=== PATIENT | female | born 1945 | race Hispanic/Latino ===

== ENCOUNTER → 2017-12-05 | Outpatient (CLI) | payer MEDICARE | LOC: RAH 12:55 | PROVIDERS: ATTEND Family Medicine | DX: Z12.31 Encounter for screening mammogram for malignant neoplasm of breast (principal) | CPT/HCPCS: 77067 ==

== ENCOUNTER → 2018-10-06 | Outpatient (CLI) | payer OTHER | END | disposition home or self-care (01) | LOC: OIH 12:35 | PROVIDERS: ATTEND Internal Medicine Cardiovascular Disease | DX: Z13.6 Encounter for screening for cardiovascular disorders (principal) | CPT/HCPCS: 75571 ==

== ENCOUNTER → 2018-11-16 | Outpatient (CLI) | payer MEDICARE ==
[~2018-11-16] MED LIST: REGADENOSON 0.4 MG/5 ML PF SYG IVP SCH
== END | disposition home or self-care (01) ==
LOC: SHCH 07:58
PROVIDERS: ATTEND Internal Medicine Cardiovascular Disease
DX: I10 Essential (primary) hypertension (principal)
CPT/HCPCS: 78452; 93017; 96374; A9500 ×2; J2785

== ENCOUNTER → 2018-12-22 | Outpatient (CLI) | payer MEDICARE | END | disposition home or self-care (01) | LOC: RAH 15:22 | PROVIDERS: ATTEND Family Medicine | DX: Z12.31 Encounter for screening mammogram for malignant neoplasm of breast (principal) | CPT/HCPCS: 77067 ==

== ENCOUNTER 2019-02-13 05:42 | Day surgery (SDC) | payer MEDICARE ==
[2019-02-09 09:26] VITALS: BP 130/69
[2019-02-09 09:35] LABS: BASOPHILS % (AUTO) 0.7 % (0.0-5.0); EOSINOPHILS % (AUTO) 4.4 % (0.0-8.0); HEMATOCRIT 39.4 % (36-48); LYMPHOCYTES % (AUTO) 20.3 % (21.0-51.0); MEAN CORPUSCULAR HEMOGLOBIN 33.1 pg (27.0-33.0); MEAN CORPUSCULAR HGB CONC 35.2 g/dL (32.0-36.0); MONOCYTES % (AUTO) 7.7 % (3.0-13.0); NEUTROPHILS % (AUTO) 66.9 % (40.0-77.0); PLATELET COUNT (AUTO) 173 K/uL (130-400); RED BLOOD CELL COUNT(AUTO) 4.19 MIL/uL (4.00-5.50); RED CELL DISTRIBUTION WIDTH 13.1 % (11.0-15.5); WHITE BLOOD COUNT (AUTO) 5.5 K/uL (4.8-10.8)
[2019-02-09 09:36] LABS: APPEARANCE,URINE Clear (CLEAR); BILIRUBIN,URINE Negative (NEGATIVE); COLOR,URINE Yellow (YELLOW); GLUCOSE, URINE (UA) Negative (NEGATIVE); KETONES,URINE Negative (NEGATIVE); LEUKOCYTE ESTERASE ,URINE Trace (NEGATIVE); NITRATE,URINE Negative (NEGATIVE); OCCULT BLOOD,URINE Negative (NEGATIVE); PROTEIN,URINE Negative (NEGATIVE)
[2019-02-09 09:40] LABS: CREATININE 0.8 mg/dL (0.5-1.5); POTASSIUM 3.9 mmol/L (3.5-5.1)
[2019-02-09 09:43] LABS: INR 0.96 (0.85-1.15); PROTHROMBIN TIME 10.1 SEC (9.6-11.6)
[2019-02-09 09:48] LABS: BACTERIA,URINE Rare /HPF (None Seen)
[2019-02-09 09:49] LABS: RBC,URINE None Seen /HPF (0-1); WBC,URINE 0-1 /HPF (0-1)
--- NOTE | 2019-02-12 13:01 | NUR ---
REPORTED ABNORMAL US TO DAVIS SOTO OF DR. BUCIO . NO NEW ORDERS RECEIVED OK TO PROCEED.
[2019-02-13] VITALS (11 sets, daily range): BP systolic 118–143; BP diastolic 62–81
[~2019-02-13] VITALS: Ht 149.9 cm; Wt 73.7 kg
[~2019-02-13 05:42] MED LIST changes: +ASPI-555 PO; +ATOR20TA65 PO; +CALC1TAB2 PO; +CARB15DR94 OP; +CHOL500062 PO; +GABA-531 PO; +HYDR12.530 PO; +HYDROCORTISONE 2.5%; +LOSA50TA64 PO; +METO-408 PO; +PANT40TA25 PO; +PSYL0.525 PO; -REGADENOSON 0.4 MG/5 ML PF SYG IVP SCH; +SODIUM CHLORIDE 0.9% 500ML 500 ML IV SCH; +VENL75TA63 PO; +[UNRECOGNIZED DRUG - OTHER]
[2019-02-13] MEDS ORDERED: SODIUM CHLORIDE 0.9% 1000ML 1,000 ML IV ONE (06:59)
[2019-02-13] MEDS ORDERED: NITROGLYCERIN 5 MG/ML 10 ML VIAL IV ONE (09:55)
[2019-02-13] MEDS ORDERED: LIDOCAINE HCL 1% 20 ML VIAL ONE (09:55)
[2019-02-13] MEDS ORDERED: HEPARIN SODIUM 1000UNIT/ML 10ML VIAL ONE (09:55)
[2019-02-13] MEDS ORDERED: IOHEXOL 350 MG/ML 100ML INFUS..BTL IV ONE (09:56)
[2019-02-13] MEDS ORDERED: IOHEXOL-350 50ML VIAL IV ONE (09:56)
[2019-02-13] MEDS ORDERED: MIDAZOLAM HCL 1 MG/ML 2ML VIAL ONE (10:00)
[2019-02-13] MEDS ORDERED: MEPERIDINE-PF 25 MG/ML SYG ONE (10:00)
[2019-02-13] MEDS ORDERED: SODIUM BICARB 50MEQ 50ML VIAL ONE (10:14)
[2019-02-13] MEDS ORDERED: SODIUM CHLORIDE 0.9% 1000ML 1,000 ML IV SCH (10:50)
--- NOTE | 2019-02-13 11:05 | NUR ---
RECEIVE PT RECEIVED FROM TORQUE TESTER VIA BED AWAKE ALERT ORIENTED X3. PT STABLE. NO COMPLAINTS MADE. CATH SITE TO RIGHT GROIN SOFT, DRESSING DRY AND INTACT, NO OOZING NO HEMATOMA NOTED. PT INSTRUCTED TO KEEP RIGHT LEG STRAIGHT AND NOT TO ELEVATE HEAD, MAINTAINED ON BEDREST. PT VERBALIZED UNDERSTANDING. DAUGHTER AT BEDSIDE. CALL PIRES WITHIN REACH. WILL CONTINUE TO MONITOR PT.
--- NOTE | 2019-02-13 12:30 | NUR ---
DIET PT TOLERATED DIET WELL. DAUGHTER AT BEDSIDE ASSISTING PT.
--- NOTE | 2019-02-13 15:20 | NUR ---
DISCHARGE PT DISCHARGED VIA WHEELCHAIR WITH DAUGHTER. PT STABLE. NO COMPLAINTS MADE. PRIOR TO DISCHARGE, PT ASSISTED TO BATHROOM, AMBULATED WITHOUT ANY PROBLEMS, VOIDED CLEAR YELLOW URINE. CATH SITE TO RIGHT GROIN REMAINS SOFT, DRESSING DRY AND INTACT, NO OOZING NO HEMATOMA NOTED. DISCHARGE INSTRUCTIONS GIVEN TO DAUGHTER EARLIER, ALSO DEMONSTRATED ON HOW TO MONITOR'S CATH SITE FOR BLEEDING/HEMATOMA, VERBALIZED UNDERSTANDING.
== END 2019-02-13 15:20 | disposition home or self-care (01) ==
LOC: DAH 05:42
PROVIDERS: ATTEND Internal Medicine Cardiovascular Disease
DX: I25.118 Atherosclerotic heart disease of native coronary artery with other forms of angina pectoris (principal); I10 Essential (primary) hypertension; G47.33 Obstructive sleep apnea (adult) (pediatric); K76.0 Fatty (change of) liver, not elsewhere classified; Z79.899 Other long term (current) drug therapy
CPT/HCPCS: 36415; 71045; 80048; 81001; 85025; 85610; 85730; 93005; 93458; A4606; C1760; C1894; J1644; J2175; J2250; J3490 ×2; J7030; Q9965; Q9967 ×2; 99156; 99157

== ENCOUNTER 2021-10-11 14:18 | Emergency (ER) | payer MEDICARE, OTHER ==
[~2021-10-11] VITALS: Ht 152.4 cm; Wt 61.2 kg
[~2021-10-11 14:18] MED LIST changes: -ASPI-555 PO; +ASPI-556 PO; +CARB-242 OP; -CARB15DR94 OP; -PANT40TA25 PO; +PANT40TA54 PO; -SODIUM CHLORIDE 0.9% 500ML 500 ML IV SCH; +VENL-191 PO; -VENL75TA63 PO
[2021-10-11 15:08] LABS: BASOPHILS % (AUTO) 0.4 % (0.0-5.0); EOSINOPHILS % (AUTO) 0.8 % (0.0-8.0); LYMPHOCYTES % (AUTO) 18.1 % (21.0-51.0); MEAN CORPUSCULAR HEMOGLOBIN 31.7 pg (27.0-33.0); MEAN CORPUSCULAR HGB CONC 34.5 g/dL (32.0-36.0); MEAN CORPUSCULAR VOLUME 91.9 fL (79-99); NEUTROPHILS % (AUTO) 73.3 % (40.0-77.0); PLATELET COUNT (AUTO) 134 K/uL (130-400); RED BLOOD CELL COUNT(AUTO) 4.57 MIL/uL (4.00-5.50); RED CELL DISTRIBUTION WIDTH 12.3 % (11.0-15.5); WHITE BLOOD COUNT (AUTO) 5.2 K/uL (4.8-10.8)
[2021-10-11 15:23] LABS: POTASSIUM 3.2 mmol/L (3.5-5.1)
[2021-10-11 15:32] LABS: ALBUMIN 3.3 g/dL (3.5-5.0); BILIRUBIN,TOTAL 0.8 mg/dL (0.2-1.0); TOTAL PROTEIN, SERUM 6.9 g/dL (6.0-8.3)
[2021-10-11 15:33] LABS: MAGNESIUM 1.6 mg/dL (1.80-2.40)
[2021-10-11 15:39] LABS: APPEARANCE,URINE Clear (CLEAR); BILIRUBIN,URINE Negative (NEGATIVE); COLOR,URINE Yellow (YELLOW); GLUCOSE, URINE (UA) Negative (NEGATIVE); KETONES,URINE Negative (NEGATIVE); LEUKOCYTE ESTERASE ,URINE Moderate (NEGATIVE); NITRATE,URINE Negative (NEGATIVE); OCCULT BLOOD,URINE Negative (NEGATIVE); PROTEIN,URINE Trace mg/dL (NEGATIVE)
[2021-10-11 15:56] LABS: BACTERIA,URINE Few /HPF (None Seen); MUCUS,URINE Moderate LPF (None Seen); RBC,URINE None Seen /HPF (0-1)
[2021-10-11 16:31] VITALS: BP 115/65
[2021-10-11] MEDS: POTASSIUM BICARB/CIT AC 25 MEQ TABLET.EFF PO ONE (16:31)
[2021-10-11] MEDS: MAGNESIUM OXIDE 400 MG TABLET PO SCH (16:31)
[2021-10-11] MEDS ORDERED: IOHEXOL 350 MG/ML 100ML INFUS..BTL IV ONE (17:30)
== END 2021-10-11 19:16 | disposition home or self-care (01) ==
LOC: EDH 14:18
DX: U07.1 COVID-19 (principal); E83.42 Hypomagnesemia; E87.6 Hypokalemia; R53.1 Weakness; E78.00 Pure hypercholesterolemia, unspecified; I10 Essential (primary) hypertension; Z79.82 Long term (current) use of aspirin; Z79.899 Other long term (current) drug therapy; Z90.49 Acquired absence of other specified parts of digestive tract
CPT/HCPCS: 36415; 71045; 71275; 80053; 81001; 82550; 83735; 84484; 85025; 85378; 87088; 93005 ×2; 99285; Q9967

== ENCOUNTER → 2023-04-30 | Outpatient (CLI) | payer OTHER | END | disposition home or self-care (01) | LOC: SHCH 09:46 | PROVIDERS: ATTEND Internal Medicine Cardiovascular Disease | DX: I08.3 Combined rheumatic disorders of mitral, aortic and tricuspid valves (principal); I10 Essential (primary) hypertension; E78.5 Hyperlipidemia, unspecified | CPT/HCPCS: 93306 ==

== ENCOUNTER → 2023-06-03 | Outpatient (CLI) | payer OTHER ==
[2023-06-03 21:48] VITALS: PULSE 68; RESP 16
[2023-06-03 22:30] VITALS: PULSE 72; RESP 16
[2023-06-03 23:00] VITALS: PULSE 70; RESP 16
[2023-06-03 23:30] VITALS: PULSE 70; RESP 16
[2023-06-04] VITALS (11 sets, daily range): PULSE 68–80; RESP 14–16
== END | disposition home or self-care (01) ==
LOC: SLP 20:09
PROVIDERS: ATTEND Internal Medicine Cardiovascular Disease
DX: G47.33 Obstructive sleep apnea (adult) (pediatric) (principal)
CPT/HCPCS: 95811

== ENCOUNTER 2024-02-13 07:33 | Emergency (ER) | payer OTHER ==
[~2024-02-13] VITALS: Ht 147.3 cm; Wt 69.9 kg
[~2024-02-13 07:33] MED LIST changes: +CARB-182 OP; -CARB-242 OP
[2024-02-13 07:52] LABS: BASOPHILS # (AUTO) 0.03 K/uL (0.00-0.20); BASOPHILS % (AUTO) 0.4 % (0.0-5.0); EOSINOPHILS # (AUTO) 0.21 K/uL (0.00-0.70); EOSINOPHILS % (AUTO) 2.8 % (0.0-8.0); HEMATOCRIT 41.6 % (36-48); IMMATURE GRANULOCYTE ABSOLUTE 0.02 K/uL (0-1); LYMPHOCYTES # (AUTO) 0.9 K/uL (1.0-4.8); LYMPHOCYTES % (AUTO) 12.5 % (21.0-51.0); MEAN CORPUSCULAR HEMOGLOBIN 31.5 pg (27.0-33.0); MEAN CORPUSCULAR HGB CONC 34.1 g/dL (32.0-36.0); MEAN CORPUSCULAR VOLUME 92.2 fL (79-99); MONOCYTES # (AUTO) 0.4 K/uL (0.1-1.0); MONOCYTES % (AUTO) 4.8 % (3.0-13.0); NEUTROPHILS % (AUTO) 79.2 % (40.0-77.0); PLATELET COUNT (AUTO) 164 K/uL (130-400); RED BLOOD CELL COUNT(AUTO) 4.51 MIL/uL (4.00-5.50); RED CELL DISTRIBUTION WIDTH 12.6 % (11.0-15.5); WHITE BLOOD COUNT (AUTO) 7.5 K/uL (4.8-10.8)
[2024-02-13 08:07] LABS: CREATININE 0.7 mg/dL (0.5-1.0); MAGNESIUM 1.8 mg/dL (1.80-2.40); POTASSIUM 4.3 mmol/L (3.5-5.1)
[2024-02-13 08:08] LABS: INR <= 0.93 (0.85-1.15); PROTHROMBIN TIME 10.3 SEC (9.6-11.6)
[2024-02-13] MEDS: PANTOPRAZOLE 40 MG/VIAL IVP ONE (08:13)
[2024-02-13] MEDS: ONDANSETRON 4MG INJ IVP ONE (08:13)
[2024-02-13 08:27] LABS: APPEARANCE,URINE CLEAR (CLEAR); BILIRUBIN,URINE NEGATIVE (NEGATIVE); COLOR,URINE LIGHT-YELLOW (YELLOW); GLUCOSE, URINE (UA) NEGATIVE (NEGATIVE); KETONES,URINE NEGATIVE (NEGATIVE); LEUKOCYTE ESTERASE ,URINE 75 Leu/uL (NEGATIVE); NITRATE,URINE NEGATIVE (NEGATIVE); OCCULT BLOOD,URINE NEGATIVE (NEGATIVE); PROTEIN,URINE NEGATIVE (NEGATIVE); UROBILINOGEN,URINE 0.2 mg/dL (0.2-1.0)
[2024-02-13 08:28] LABS: ADD UA MICROSCOPIC YES
[2024-02-13 08:33] LABS: MUCUS,URINE RARE LPF (None Seen); OTHER CASTS, URINE 1 /LPF (None Seen); SQUAMOUS EPITHELIAL CELL,UR RARE /HPF (0-2)
[2024-02-13] MEDS: MAG/ALUM/SIMETH 30 ML UDCUP PO ONE (09:39)
[2024-02-13] MEDS: LIDOCAINE HCL 2% VISCOUS 15 ML UDCUP PO ONE (09:39)
[2024-02-13] MEDS ORDERED: IOHEXOL 350 MG/ML 100ML INFUS..BTL IV ONE (10:20)
[2024-02-13] MEDS: KETOROLAC 30MG VIAL (30MG/ML) IVP ONE (11:03)
[2024-02-13] MEDS ORDERED: PANT40TA55 PO (11:58)
[2024-02-13 12:25] VITALS: BP 146/81; PULSE 83; RESP 18; O2SAT 97
== END 2024-02-13 12:26 | disposition home or self-care (01) ==
LOC: EDH 07:33
DX: K21.9 Gastro-esophageal reflux disease without esophagitis (principal); A08.4 Viral intestinal infection, unspecified; E78.00 Pure hypercholesterolemia, unspecified; I10 Essential (primary) hypertension; Z79.82 Long term (current) use of aspirin; Z79.899 Other long term (current) drug therapy; Z90.49 Acquired absence of other specified parts of digestive tract; Z90.710 Acquired absence of both cervix and uterus
CPT/HCPCS: 99285; 96374; 71275; 96375; 71045; 83735; 84484 ×3; 80048; 85025; 85610; 87088; 81001; 36415; 93005; J2405; J1885; C9113; Q9967

== ENCOUNTER → 2024-09-14 | Outpatient (CLI) | payer OTHER ==
[~2024-09-14] MED LIST changes: +PANT40TA55 PO; -VENL-191 PO; +VENL-83 PO
[2024-09-14] MEDS: REGADENOSON 0.4 MG/5 ML PF SYG IVP ONE (16:00)
--- NOTE | 2024-09-19 08:47 | HMCSR ---
APPROVED REPORT Height: 5 ft 0in Weight: 157 lbs TEST INDICATIONS Hypertension/HDD, Chest Pain The imaging protocol used to acquire images was Rest Tc-99m/stress Tc-99m 1 day Consent: The procedure was explained and understood by the patient. Informerd consent was witnessed Nurys Velazquez RN First, low dose rest was performed then high dose stress. RESTING DATA: The resting ekg shows: NSR Rest SPECT myocardial perfusion imaging was performed in supine position 86 minutes following the int ravenous injection of 12.9 mCi of Tc-99 Sestamibi. Time of rest injection: 09:09: Date: 09/14/2024 Time of rest imagin:35: Date: 09/14/2024 PHARMACOLOGIC STRESS: Pharmacologic stress test was performed by injecting regadenoson 0.4 mg IV push followed by the intra venous injection of 32.1 mCi of Tc-99 Sestamibi. Time of stress injection: 11:07: Date: 09/14/2024 Time of stress imagin:00: Date: 09/14/2024 Heart Rate at time of stress injection: 46 bpm. Gated Stress SPECT was performed 117 minutes after stress injection. The images were gated to evaluate regional wall motion and calculate left ventricular ejection fracti on. STRESS DETAILS Reason for Termination: Infusion complete Stress Symptoms: No chest pain or symptoms Max HR Achieved: 88 bpm % of APMHR Achieved: 62 Max Blood Pressure: 156/82 mmHg Stress ECG: NSR LEFT VENTRICLE Size: The left ventricular size is normal. Systolic Function:The left ventricular systolic function is normal. Wall Motion: No regional wall motion abnormalities noted. The left ventricular ejection fraction was calculated to be 64%.TID = . LV PERFUSION Subtle, fixed apical and lateral thinning defects. No reversible defects. Conclusion The left ventricular size is normal. The left ventricular systolic function is normal. No regional wall motion abnormalities noted. Subtle, fixed apical and lateral thinning defects. No reversible defects. The left ventricular ejection fraction was calculated to be 64%.
== END | disposition home or self-care (01) ==
LOC: SHCH 08:43
PROVIDERS: ATTEND Internal Medicine Cardiovascular Disease
DX: I49.9 Cardiac arrhythmia, unspecified (principal); I11.9 Hypertensive heart disease without heart failure; R07.9 Chest pain, unspecified; I49.5 Sick sinus syndrome
CPT/HCPCS: 78452; 93017; J2785; A9500 ×2